=== PATIENT | male | born 1935 | race Caucasian/White ===

== ENCOUNTER → 2017-07-04 | Outpatient (CLI) | payer MEDICARE ==
--- NOTE | 2017-07-04 10:42 | XR ---
EXAMINATION TYPE: XR chest 2V DATE OF EXAM: 07/04/2017 COMPARISON: 02/09/2017 TECHNIQUE: PA and lateral views submitted. HISTORY: Shortness of breath FINDINGS: Intact midline sternotomy wires and mild cardiomegaly are again appreciated. Bilateral calcified pleu ral plaques compatible with the patient's history of asbestos exposure. Diffuse interstitial prominence is difficult to evaluate secondary to overlying pleural plaques but a ppears chronic and unchanged possibly relating to interstitial lobular thickening. Blunting of the costophrenic angles is stable and likely relates to chronic pleural parenchymal thick ening. No new consolidation is seen in comparison the prior exam. IMPRESSION: 1. Correlate for chronic interstitial lung disease and asbestosis related disease.
== END | disposition home or self-care (01) ==
LOC: RADXRMAIN 10:18
PROVIDERS: ATTEND Internal Medicine Cardiovascular Disease
DX: R06.02 Shortness of breath (principal)
CPT/HCPCS: 71046; 83880

== ENCOUNTER 2017-08-29 05:00 | Inpatient (IN) | payer MEDICARE ==
--- NOTE | 2017-08-29 05:44 | ED ---
Weakness HPI - General Chief complaint: Fall Stated complaint: Fall Time Seen by Provider: 08/29/17 05:02 Source: patient, EMS Mode of arrival: EMS Limitations: no limitations - History of Present Illness Initial comments: This patient is an 82-year-old man who presents to be evaluated after he had a fall. The patient states that he had attempted to get up to use the bathroom and then noted that it seemed like his body lost tone for a second. He states that this is been happening over the past few days, but that he had been able to catch himself prior to tonight's episode. He states that he did fall to the ground but did not feel he had any injury. He denies head or neck pain, chest, back, abdomen pain. He did not have any extremity injury. MD Complaint: generalized weakness, difficulty walking -: hour(s) Location: generalized Consistency: intermittent Improves with: none Worsens with: none Associated Symptoms: denies other symptoms - Related Data Allergies Allergy/AdvReac Type Severity Reaction Status Date / Time No Known Allergies Allergy Verified 08/29/17 05:09 Review of Systems ROS Statement: Those systems with pertinent positive or pertinent negative responses have been documented in the HPI. ROS Other: All systems not noted in ROS Statement are negative. Constitutional: Reports: weakness Eyes: Denies: vision change Respiratory: Denies: cough, dyspnea Cardiovascular: Denies: chest pain, palpitations, edema Gastrointestinal: Denies: abdominal pain, vomiting, diarrhea, constipation Genitourinary: Denies: dysuria, hematuria Musculoskeletal: Denies: back pain Skin: Denies: rash Neurological: Reports: weakness. Denies: headache, numbness, paresthesias Past Medical History Past Medical History: Atrial Fibrillation, Hyperlipidemia, Hypertension Additional Past Medical History / Comment(s): asbestos exposure. History of Any Multi-Drug Resistant Organisms: None Reported Past Surgical History: Cholecystectomy, Coronary Bypass/CABG, Hernia Repair Past Psychological History: No Psychological Hx Reported Smoking Status: Former smoker Past Alcohol Use History: Occasional Past Drug Use History: None Reported General Exam Limitations: no limitations General appearance: alert, in no apparent distress Head exam: Present: atraumatic, normocephalic Eye exam: Present: normal appearance. Absent: scleral icterus, conjunctival injection ENT exam: Present: normal oropharynx Neck exam: Present: normal inspection, full ROM Respiratory exam: Present: normal lung sounds bilaterally. Absent: respiratory distress, wheezes, rales, rhonchi, stridor Cardiovascular Exam: Present: regular rate, irregular rhythm, systolic murmur ( Grade 2/6 systolic ejection murmur loudest at the right sternal border). Absent : diastolic murmur, rubs, gallop GI/Abdominal exam: Present: soft. Absent: distended, tenderness, guarding, rebound, rigid, mass Extremities exam: Present: normal inspection, normal capillary refill. Absent: pedal edema, calf tenderness Back exam: Present: normal inspection. Absent: CVA tenderness (R), CVA tenderness (L) Neurological exam: Present: alert, oriented X3, CN II-XII intact. Absent: motor sensory deficit Skin exam: Present: warm, dry, intact, normal color. Absent: rash Course Vital Signs 08/29/17 08/29/17 05:01 06:52 Temperature 100 F H Pulse Rate 64 70 Respiratory 16 18 Rate Blood Pressure 155/76 144/72 O2 Sat by Pulse 98 100 Oximetry Medical Decision Making - Lab Data Result diagrams: 08/29/17 05:50 08/29/17 05:50 Lab Results 08/29/17 08/29/17 08/29/17 Range/Units 05:50 05:50 05:50 WBC 7.5 (3.8-10.6) k/uL RBC 4.29 L (4.30-5.90) m/uL Hgb 11.7 L (13.0-17.5) gm/dL Hct 37.7 L (39.0-53.0) % MCV 87.9 (80.0-100.0) fL MCH 27.3 (25.0-35.0) pg MCHC 31.1 (31.0-37.0) g/dL RDW 14.2 (11.5-15.5) % Plt Count 167 (150-450) k/uL Neutrophils % 93 % Lymphocytes % 3 % Monocytes % 3 % Eosinophils % 0 % Basophils % 0 % Neutrophils # 7.0 (1.3-7.7) k/uL Lymphocytes # 0.2 L (1.0-4.8) k/uL Monocytes # 0.2 (0-1.0) k/uL Eosinophils # 0.0 (0-0.7) k/uL Basophils # 0.0 (0-0.2) k/uL Hypochromasia Slight VBG pH (7.31-7.41) VBG pCO2 (37-51) mmHg VBG HCO3 (24-28) mmol/L Sodium 143 (137-145) mmol/L Potassium 4.8 (3.5-5.1) mmol/L Chloride 93 L (98-107) mmol/L Carbon Dioxide 43 H* (22-30) mmol/L Anion Gap 7 mmol/L BUN 21 H (9-20) mg/dL Creatinine 0.70 (0.66-1.25) mg/dL Est GFR (MDRD) Af Amer >60 (>60 ml/min/1.73 sqM) Est GFR (MDRD) Non-Af >60 (>60 ml/min/1.73 sqM) Glucose 124 H (74-99) mg/dL Calcium 9.8 (8.4-10.2) mg/dL Magnesium 2.4 H (1.6-2.3) mg/dL Total Bilirubin 0.4 (0.2-1.3) mg/dL AST 24 (17-59) U/L ALT 37 (21-72) U/L Alkaline Phosphatase 76 (38-126) U/L Troponin I <0.012 (0.000-0.034) ng/mL Total Protein 6.7 (6.3-8.2) g/dL Albumin 3.8 (3.5-5.0) g/dL TSH 0.182 L (0.465-4.680) mIU/L Urine Color Urine Appearance (Clear) Urine pH (5.0-8.0) Ur Specific [place] (1.001-1.035) Urine Protein (Negative) Urine Glucose (UA) (Negative) Urine Ketones (Negative) Urine Blood (Negative) Urine Nitrite (Negative) Urine Bilirubin (Negative) Urine Urobilinogen (<2.0) mg/dL Ur Leukocyte Esterase (Negative) Urine WBC (0-5) /hpf Ur Squamous Epith Cells (0-4) /hpf Hyaline Casts (0-2) /lpf Urine Mucus (None) /hpf 08/29/17 08/29/17 Range/Units 06:11 06:50 WBC (3.8-10.6) k/uL RBC (4.30-5.90) m/uL Hgb (13.0-17.5) gm/dL Hct (39.0-53.0) % MCV (80.0-100.0) fL MCH (25.0-35.0) pg MCHC (31.0-37.0) g/dL RDW (11.5-15.5) % Plt Count (150-450) k/uL Neutrophils % % Lymphocytes % % Monocytes % % Eosinophils % % Basophils % % Neutrophils # (1.3-7.7) k/uL Lymphocytes # (1.0-4.8) k/uL Monocytes # (0-1.0) k/uL Eosinophils # (0-0.7) k/uL Basophils # (0-0.2) k/uL Hypochromasia VBG pH 7.33 (7.31-7.41) VBG pCO2 75 H* (37-51) mmHg VBG HCO3 38 H (24-28) mmol/L Sodium (137-145) mmol/L Potassium (3.5-5.1) mmol/L Chloride (98-107) mmol/L Carbon Dioxide (22-30) mmol/L Anion Gap mmol/L BUN (9-20) mg/dL Creatinine (0.66-1.25) mg/dL Est GFR (MDRD) Af Amer (>60 ml/min/1.73 sqM) Est GFR (MDRD) Non-Af (>60 ml/min/1.73 sqM) Glucose (74-99) mg/dL Calcium (8.4-10.2) mg/dL Magnesium (1.6-2.3) mg/dL Total Bilirubin (0.2-1.3) mg/dL AST (17-59) U/L ALT (21-72) U/L Alkaline Phosphatase (38-126) U/L Troponin I (0.000-0.034) ng/mL Total Protein (6.3-8.2) g/dL Albumin (3.5-5.0) g/dL TSH (0.465-4.680) mIU/L Urine Color Yellow Urine Appearance Cloudy (Clear) Urine pH 8.5 H (5.0-8.0) Ur Specific [place] 1.015 (1.001-1.035) Urine Protein Trace H (Negative) Urine Glucose (UA) Negative (Negative) Urine Ketones Negative (Negative) Urine Blood Negative (Negative) Urine Nitrite Negative (Negative) Urine Bilirubin Negative (Negative) Urine Urobilinogen 2.0 (<2.0) mg/dL Ur Leukocyte Esterase Negative (Negative) Urine WBC 1 (0-5) /hpf Ur Squamous Epith Cells <1 (0-4) /hpf Hyaline Casts 353 H (0-2) /lpf Urine Mucus Rare H (None) /hpf - EKG Data -: EKG Interpreted by Me EKG shows normal: axis (Normal), intervals (Normal), QRS complexes (Normal), ST- T waves (Normal) Rate: bradycardia Interpretation: other (The underlying rhythm appears to be atrial fibrillation with a rate of 57 bpm) Disposition Clinical Impression: Fall, Respiratory acidosis, COPD exacerbation Disposition: ADMITTED IP TO THIS [facility] Condition: Poor Referrals: [facility],Clinic [Primary Care Provider] - 1-2 days
[2017-08-29 06:10] LABS: Basophils % (A) 0 %; Eosinophils % (A) 0 %; HCT 37.7 % (39.0-53.0); HGB 11.7 gm/dL (13.0-17.5); Hypochromasia Slight; Lymphocytes # (A) 0.2 k/uL (1.0-4.8); Lymphocytes % (A) 3 %; MCH 27.3 pg (25.0-35.0); MCHC 31.1 g/dL (31.0-37.0); MCV 87.9 fL (80.0-100.0); Mean Platelet Volume 7.2; Monocytes # (A) 0.2 k/uL (0-1.0); Monocytes % (A) 3 %; Neutrophils % (A) 93 %; Platelet Count 167 k/uL (150-450); RBC 4.29 m/uL (4.30-5.90); RDW 14.2 % (11.5-15.5); WBC 7.5 k/uL (3.8-10.6)
[2017-08-29 06:27] LABS: Appearance,Urine Cloudy (Clear); Bilirubin,Urine Negative (Negative); Blood,Urine Negative (Negative); Color,Urine Yellow; Glucose,Urine (UA) Negative (Negative); Hyaline Casts,Urine 353 /lpf (0-2); Ketones,Urine Negative (Negative); Leukocyte Esterase,Urine Negative (Negative); Mucus,Urine Rare /hpf; Nitrite,Urine Negative (Negative); PH, Urine 8.5 (5.0-8.0); Protein,Urine Trace (Negative); Specific Gravity,Urine 1.015 (1.001-1.035); Squamous Epithelial Cell,Urine <1 /hpf (0-4); WBC,Urine 1 /hpf (0-5)
--- NOTE | 2017-08-29 06:31 | XR ---
EXAM: XR Chest, 1 View CLINICAL HISTORY: ITS.REASON XR Reason: weakness TECHNIQUE: Frontal view of the chest. COMPARISON: 07/04/17 FINDINGS: No lobar consolidation or pulmonary edema. Calcified pleural plaques redemonstrated bilaterally. Stable diffuse bilateral pulmonary interstitial opacities. CABG changes noted. Moderate cardiomegaly. Low lung volumes. Pulmonary vasculature within normal limits. IMPRESSION: No acute cardiopulmonary process. Stable bilateral calcified pleural plaques compatible with history of asbestosis. Stable chronic interstitial lung disease.
[2017-08-29 06:32] LABS: ALT 37 U/L (21-72); AST 24 U/L (17-59); Albumin 3.8 g/dL (3.5-5.0); Alkaline Phosphatase 76 U/L (38-126); Blood Urea Nitrogen 21 mg/dL (9-20); Calcium 9.8 mg/dL (8.4-10.2); Chloride 93 mmol/L (98-107); Glucose 124 mg/dL (74-99); Magnesium 2.4 mg/dL (1.6-2.3); Potassium 4.8 mmol/L (3.5-5.1); Sodium 143 mmol/L (137-145); Total Bilirubin 0.4 mg/dL (0.2-1.3); Total Protein 6.7 g/dL (6.3-8.2)
[2017-08-29 06:39] LABS: Anion Gap 7 mmol/L
[2017-08-29 06:43] LABS: Carbon Dioxide 43 mmol/L (22-30)
--- NOTE | 2017-08-29 07:02 | CT ---
EXAM: CT Head Without Intravenous Contrast CLINICAL HISTORY: ITS.REASON CT Reason: weakness TECHNIQUE: Axial computed tomography images of the head/brain without intravenous contrast. DLP is 1236 mGy-cm. This CT exam was performed using one or more of the following dose reduction techniques: automated exposure control, adjustment of the mA and/or kV according to patient size, and/or use of iterative reconstruction technique. COMPARISON: No relevant prior studies available. FINDINGS: Brain: Unremarkable. No hemorrhage. No significant white matter disease. No edema. Ventricles: Unremarkable. No ventriculomegaly. Bones/joints: Unremarkable. No acute fracture. Soft tissues: Unremarkable. Sinuses: Mucosal thickening of the left maxillary sinus. Mastoid air cells: Unremarkable as visualized. No mastoid effusion. IMPRESSION: No acute findings. Left maxillary sinus mucosal thickening noted.
[2017-08-29 07:04] LABS: VBG PH 7.33 (7.31-7.41)
[2017-08-29] MEDS ORDERED: methylPREDNISolone SOD SUCCI 125 MG/2 ML VIAL IV STA (07:12)
[2017-08-29] MEDS ORDERED: BUDESONIDE 0.5 MG/2 ML NEBU INHALATION SCH (08:00)
[2017-08-29] MEDS: IPRATROPIUM-ALBUTEROL 3 ML NEB INHALATION SCH ×2 (08:47→12:17)
[2017-08-29] MEDS ORDERED: methylPREDNISolone SOD SUCCI 125 MG/2 ML VIAL IV SCH (12:00)
[2017-08-29 13:51] VITALS: BP 145/64; PULSE 68; RESP 18; TEMP 97.6
--- NOTE | 2017-08-29 22:14 | HP ---
HISTORY AND PHYSICAL HISTORY AND PHYSICAL AND DISCHARGE SUMMARY: CHIEF COMPLAINTS: Fall and shortness of breath. HISTORY OF PRESENT ILLNESS: This 82-year-old gentleman with a past medical history of multiple medical problems, including history of atrial fibrillation, history of hypertension, hyperlipidemia, DJD, history of respirations lung disease, asbestos exposure and on home O2, chronic hypoxic respiratory failure being followed by the [place] [facility] in the outpatient setting, apparently had a fall at home. The patient lost his balance and fell and the patient is complaining of some right leg pain. Otherwise, patient also had shortness of breath. The patient came to [facility] and was admitted for further evaluation and treatment. There was no history of fever, rigors. No history of headache, loss of consciousness, seizures. PAST MEDICAL HISTORY: History of atrial fibrillation, history of hypertension, hyperlipidemia, history of DJD, history of respiratory disorder with chronic hypoxic respiratory failure. MEDICATIONS PRIOR TO ADMISSION: Include home medications are: 1. Trazodone 50-150 mg q.h.s. 2. Prednisone taper. 3. Ativan 0.5 mg q.h.s. 4. Percocet 1 tablet every 6 hours p.r.n. 5. Vitamin D3 1000 daily. 6. Ventolin HFA 1-2 puffs every 6 hours. 7. Multivitamins 1 p.o. daily. 8. Neurontin 400 mg q.8. 9. Fish oil 1 p.o. daily. 10.Mobic 15 mg p.o. daily. 11.Lasix 20 mg b.i.d. 12.K-Dur 20 mg p.o. daily. 13.Zaroxolyn 2.5 mg Monday, Monday and Monday. 14.Benicar 20 mg p.o. daily. 15.Lipitor 20 mg q.h.s. 16.Ecotrin 81 mg p.o. daily. 17.Zyloprim 100 mg p.o. daily. 18.Nexium 20 mg p.o. daily. 19.Alphagan 1 drop right eye b.i.d. 20.Eliquis 2.5 mg b.i.d. 21.Lumigan 0.05% 1 drop both eyes q.h.s. ALLERGIES: None. FAMILY HISTORY: History of cancer, coronary artery disease in the family, CAD and CABG. SOCIAL HISTORY: Previous history of smoking. Occasional alcohol intake. REVIEW OF SYSTEMS: ENT: No diminished hearing, diminished vision. CARDIOVASCULAR: As mentioned earlier. RESPIRATORY: As mentioned earlier. GI: No nausea or vomiting. : No dysuria. NERVOUS: No numbness or weakness. ALLERGY/IMMUNOLOGY: No asthma or hay fever. MUSCULOSKELETAL: As mentioned earlier. HEMATOLOGY/ONCOLOGY: No history of anemia. ENDOCRINE: As mentioned earlier. CONSTITUTIONAL: As mentioned earlier. DERMATOLOGY: Negative. RHEUMATOLOGY: Negative. PSYCHIATRY: As mentioned earlier. PHYSICAL EXAM: Alert, oriented x3. Pulse 68, blood pressure 145/64, respirations 18, temperature 97.6, pulse ox 90% room air. HEENT: Conjunctivae normal. Oral mucosa moist. NECK: No jugular venous distention. No carotid bruits. No lymph node enlargement. CARDIOVASCULAR: S1, S2 muffled. No S3. No S4. RESPIRATORY: Breath sounds diminished in the bases. A few scattered rhonchi. No crackles. ABDOMEN: Soft, nontender. No mass palpable. LEGS: No edema. No swelling. Bruises present. NERVOUS SYSTEM: Higher functions as mentioned earlier. Moves all 4 limbs. No focal motor or sensory deficits. LYMPHATIC: No lymphadenopathy in neck or axillae. SKIN: No ulcer, rash or bleeding. LAB INVESTIGATIONS: At this time WBC 7, hemoglobin 7.7. VBGs noted. CO2 is 43. ASSESSMENT: 1. History of fall and gait dysfunction and right leg contusion. 2. History of degenerative joint disease. 3. Chronic obstructive pulmonary disease. 4. Anemia, normocytic. 5. Increased CO2. 6. History atrial fibrillation. 7. Hypertension. 8. Hyperlipidemia. 9. History of degenerative joint disease. 10.History of chronic hypoxic respiratory failure. 11.Bilateral glaucoma. 12.Coronary artery disease, coronary artery bypass graft. RECOMMENDATIONS AND DISCUSSION: In this 82-year-old gentleman who presented with multiple complex medical issues, at this time I would recommend the patient to be discharged home and continue the home medications. Dr. Causey has re-evaluated the patient and recommended discharge. Otherwise PT, OT evaluation and repeat labs with the primary physician and resume the home medications, which are evaluated and reconciled. Please refer to the discharge reconciliation sheet for further information. Prognosis guarded and further recommendations for outpatient followup. MMODL / IJN: [id number] /
--- NOTE | 2017-09-04 12:06 | CDI ---
Last Revision, June 2017 Documentation Clarification Form Date: 09/04/2017 12:01:00 PM From: Janessa Cheikh Rajwinder Shields, Supervisory Examiner between 8:30 am & 5 pm -FMRN : [id number] Admit Date: 08/29/2017 7:12:00 AM Patient Name: Ronnie Sparks Visit Number: [id number] Discharge Date: 08/29/17 ATTENTION: The Clinical Documentation Specialists (CDI) and [facility] Coding Staff appreciate your assistance in clarifying documentation. Please respond to the clarification below the line at the bottom and electronically sign. The CDI & [facility] Coding staff will review the response and follow-up if needed. Please note: Queries are made part of the Legal Health Record. If you have any questions, please contact the author of this message via ITS. Dr Perez Harris Atrial fibrillation is documented in the ED record and H&P. EKG/telemetry: Atrial fibrillation with slow ventricular response. Treatment: Elizuis 2.5 mg po BID In your professional opinion, can you please clarify the type of atrial fibrillation, if known? Chronic/Permanent Paroxysmal Persistent Other, please specify Unable to determine Please continue to document in your progress notes and discharge summary in order to capture severity of illness and risk of mortality. Include clinical findings that support your diagnosis. Chronic/Permanent MTDD
== END 2017-08-29 13:45 | disposition home or self-care (01) | DRG 191 ==
LOC: EC 05:00 → 4MS4W 07:12
PROVIDERS: ADMIT Internal Medicine; ATTEND Internal Medicine
DX: J44.1 Chronic obstructive pulmonary disease with (acute) exacerbation (principal); J96.11 Chronic respiratory failure with hypoxia; E87.2 Acidosis; I48.2 Chronic atrial fibrillation; Z99.81 Dependence on supplemental oxygen; D64.9 Anemia, unspecified; E78.5 Hyperlipidemia, unspecified; S80.11XA Contusion of right lower leg, initial encounter; H40.9 Unspecified glaucoma; Z95.1 Presence of aortocoronary bypass graft; I10 Essential (primary) hypertension; M19.91 Primary osteoarthritis, unspecified site; R26.2 Difficulty in walking, not elsewhere classified; I25.10 Atherosclerotic heart disease of native coronary artery without angina pectoris; Z79.01 Long term (current) use of anticoagulants; Z79.1 Long term (current) use of non-steroidal anti-inflammatories (NSAID); Z79.82 Long term (current) use of aspirin; Z79.52 Long term (current) use of systemic steroids; Z79.899 Other long term (current) drug therapy; Z87.891 Personal history of nicotine dependence; Z77.090 Contact with and (suspected) exposure to asbestos; W19.XXXA Unspecified fall, initial encounter; Y92.009 Unspecified place in unspecified non-institutional (private) residence as the place of occurrence of the external cause
CPT/HCPCS: 36415; 70450; 71045; 80053; 81001; 82803; 83735; 84443; 84484; 85025; 87502; 93005; 94640; 96374; 99285

== ENCOUNTER 2018-06-13 07:15 | Day surgery (SDC) | payer MEDICARE ==
[~2018-06-13 07:15] MED LIST: LACTATED RINGERS 1,000 ML IV SCH; LIDOCAINE 1% 20 ML VIAL (10MG/ML) FOR IV START INTRADERMA PRN
[2018-06-13 07:48] VITALS: TEMP 98.4
[2018-06-13] MEDS ORDERED: PROPOFOL 10 MG/ML 20 ML VIAL IV ONE (09:19)
--- NOTE | 2018-06-13 10:00 | P.PCN ---
Date of Procedure: 06/13/18 Procedure(s) Performed: BRIEF HISTORY: Patient is a 82-year-old pleasant white male, scheduled for an elective colonoscopy as a part of evaluation of Hemoccult positive stool. PROCEDURE PERFORMED: Colonoscopy with snare polypectomy. PREOPERATIVE DIAGNOSIS: Hemoccult-positive stool. IV sedation per Anesthesia. PROCEDURE: After informed consent was obtained, the patient, was brought into the endoscopy unit. IV sedation was administered by Anesthesia under continuous monitoring. Digital rectal examination was normal. Initially the Olympus CF- 160 flexible video colonoscope was then inserted in the rectum, gradually advanced into the hepatic flexure and further advancement of the scope was not possible because of the extremely redundant colon. Also prep was poor in several areas of the colon precluding adequate visualization. The visualized portions of the transverse colon, appeared normal in the descending colon there was a 1 cm polyp removed by snare polypectomy. Rest of the descending colon, sigmoid colon, and rectum appeared normal. Retroflexion was performed in the rectum and no lesions were seen. The patient tolerated the procedure well. IMPRESSION: 1 cm descending colon polyp status post polypectomy Poor prep involving the entire colon Scope advanced up to the hepatic flexure and scattered sigmoid diverticulosis seen. RECOMMENDATIONS: Findings of this examination were discussed with the patient as well as his family. He was advised to follow with the biopsy results and will plan a repeat colonoscopy in one year.
[2018-06-13 10:34] VITALS: BP 114/67; PULSE 57; RESP 18
== END 2018-06-13 10:44 | disposition home or self-care (01) ==
LOC: ORWHC2ENDO 07:15
PROVIDERS: ATTEND Internal Medicine Gastroenterology
DX: D12.4 Benign neoplasm of descending colon (principal); K57.30 Diverticulosis of large intestine without perforation or abscess without bleeding; Q43.8 Other specified congenital malformations of intestine; R19.5 Other fecal abnormalities; I25.10 Atherosclerotic heart disease of native coronary artery without angina pectoris; I48.91 Unspecified atrial fibrillation; I10 Essential (primary) hypertension; E78.5 Hyperlipidemia, unspecified; K21.9 Gastro-esophageal reflux disease without esophagitis; Z95.1 Presence of aortocoronary bypass graft; Z79.01 Long term (current) use of anticoagulants; Z79.82 Long term (current) use of aspirin; Z79.899 Other long term (current) drug therapy
CPT/HCPCS: 88305; 45385; J2704

== ENCOUNTER 2020-06-21 11:15 | Inpatient (IN) | payer MEDICARE ==
[2020-06-21] MEDS ORDERED: ALBUTEROL HFA INHALER INHALATION STA (11:31)
[2020-06-21] MEDS ORDERED: ALBUTEROL HFA INHALER INHALATION PRN (11:31)
[2020-06-21] MEDS ORDERED: ACETAMINOPHEN IV (For NPO) 1,000 MG in EMPTY BAG 1 BAG IVPB STA (11:34)
--- NOTE | 2020-06-21 11:37 | ED ---
General Adult HPI - General Stated complaint: Altered Source: patient, EMS, RN notes reviewed, old records reviewed Mode of arrival: EMS Limitations: altered mental status, physical limitation - History of Present Illness Initial comments: Patient is a pleasant 84-year-old male presenting to the emergency department by EMS for weakness. Patient reportedly was in a chair and fell out. Unclear if there is injury. Patient does have c-collar present. Patient is a pineda with poor historian and provides limited history. Patient does admit to cough and shortness of breath however unclear how long. Further history is limited. - Related Data Home Medications Medication Instructions Recorded Confirmed Apixaban [Eliquis] 2.5 mg PO BID 08/29/17 06/21/20 Atorvastatin [Lipitor] 10 mg PO HS 08/29/17 06/21/20 Bimatoprost [Lumigan .01% Ophth 1 drop BOTH EYES HS 08/29/17 06/21/20 Soln] Esomeprazole Magnesium [NexIUM] 20 mg PO HS 08/29/17 06/21/20 Furosemide [Lasix] 20 mg PO BID 08/29/17 06/21/20 Olmesartan [Benicar] 20 mg PO QAM 08/29/17 06/21/20 Potassium Chloride ER [K-Dur 20] 20 meq PO BID 08/29/17 06/21/20 allopurinoL [Zyloprim] 100 mg PO QAM 08/29/17 06/21/20 metOLazone [Zaroxolyn] 2.5 mg PO MOWEFR PRN 08/29/17 06/21/20 oxyCODONE-APAP 5-325MG [Percocet 1 tab PO Q6HR PRN 08/29/17 06/21/20 5-325 mg] traZODone HCL 50 - 150 mg PO HS PRN 08/29/17 06/21/20 Celecoxib [CeleBREX] 100 mg PO BID 06/21/20 06/21/20 Docusate [Colace] 200 mg PO DAILY 06/21/20 06/21/20 LORazepam [Ativan] 1 mg PO BID 06/21/20 06/21/20 Melatonin 5 mg PO HS PRN 06/21/20 06/21/20 SILVER sulfADIAZINE Cream 1 applic TOPICAL DIRECTED 12/20/20 12/20/20 [Silvadene 1% Cream] Tamsulosin HCl [Flomax] 0.8 mg PO HS 06/21/20 06/21/20 Temazepam [Restoril] 7.5 mg PO HS PRN 06/21/20 06/21/20 acetaZOLAMIDE [Diamox] 250 mg PO BID 06/21/20 06/21/20 metOLazone [Zaroxolyn] 5 mg PO DIRECTED PRN 06/21/20 06/21/20 Allergies Allergy/AdvReac Type Severity Reaction Status Date / Time No Known Allergies Allergy Verified 06/13/18 07:47 Review of Systems ROS Statement: Those systems with pertinent positive or pertinent negative responses have been documented in the HPI. ROS Other: All systems not noted in ROS Statement are negative. Constitutional: Reports: fever Eyes: Denies: eye pain ENT: Denies: ear pain Respiratory: Reports: cough, dyspnea Cardiovascular: Denies: chest pain Endocrine: Reports: fatigue Gastrointestinal: Denies: abdominal pain Genitourinary: Denies: dysuria Musculoskeletal: Denies: back pain Skin: Denies: rash Neurological: Denies: headache Past Medical History Past Medical History: Atrial Fibrillation, COPD, Eye Disorder, Hyperlipidemia, Hypertension, Osteoarthritis (OA), Respiratory Disorder Additional Past Medical History / Comment(s): CURRENT: RECTAL BLEEDING, LOW H GB, "COLD". 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 Current dry rash buttocks-being tx by Dr. Caldwell. lower leg edema at times. bilateral glaucoma. arthritis-bilateral hips/knees. History of Any Multi-Drug Resistant Organisms: None Reported Past Surgical History: Cholecystectomy, Coronary Bypass/CABG, Heart Catheterization, Hernia Repair, Joint Replacement, Tonsillectomy Additional Past Surgical History / Comment(s): 4 vessl CABG about 14-15 yrs ago, total L hip arthroplasty, bilateral cataract removal with lens implants, colonoscopy, umbilical hernia repair. Past Anesthesia/Blood Transfusion Reactions: No Reported Reaction Past Psychological History: No Psychological Hx Reported Smoking Status: Unknown if ever smoked Past Alcohol Use History: Occasional Past Drug Use History: None Reported - Past Family History Father Family Medical History: Cancer, Coronary Artery Disease (CAD) Additional Family Medical History / Comment(s): Father had CABG and of stomach cancer. Mother History Unknown: Yes Additional Family Medical History / Comment(s): Mother had many unknown medical problems. She lived to be in her 90s. General Exam Limitations: altered mental status, physical limitation General appearance: alert, in no apparent distress Head exam: Present: atraumatic, normocephalic Eye exam: Present: normal appearance, PERRL Neck exam: Present: normal inspection Respiratory exam: Present: rales Cardiovascular Exam: Present: tachycardia, irregular rhythm GI/Abdominal exam: Present: soft. Absent: distended, tenderness Extremities exam: Present: normal inspection, full ROM. Absent: tenderness Neurological exam: Present: alert Expanded Neurological exam: Present: protecting the airway Patient oriented to: Present: person. Absent: place, time Motor strength exam: RUE: 4, LUE: 4, RLE: 4, LLE: 4 Eye Response: (4) open spontaneously Motor Response: (6) obeys commands Verbal Response: (4) confused conversation Psychiatric exam: Present: flat affect Skin exam: Present: normal color. Absent: rash Course Vital Signs 06/21/20 06/21/20 06/21/20 11:32 11:40 11:48 Temperature 103.7 F H Pulse Rate 80 82 Respiratory 26 H 28 H Rate Blood Pressure 170/89 O2 Sat by Pulse 94 L Oximetry 06/21/20 11:59 Temperature Pulse Rate 84 Respiratory Rate Blood Pressure O2 Sat by Pulse Oximetry - Reevaluation(s) Reevaluation #1: 06/21/20 12:42 There is concern for sepsis diagnosed at 12:40 PM. Blood culture and lactic acid ordered. IV antibiotics ordered. EKG Findings - EKG Comments: EKG Findings:: A. fib with a rate of 84. QRS 90. QT 332. QTC 392. Normal axis. Inferior Q waves. non specific T waves. Medical Decision Making - Medical Decision Making Patient was reevaluated Case was discussed with Dr. Vee who did come evaluate patient. He will admit covering for Dr. Blair - Lab Data Result diagrams: 06/21/20 11:26 06/21/20 11:26 Lab Results 06/21/20 06/21/20 06/21/20 Range/Units 11:26 11:26 11:26 WBC 12.7 H (3.8-10.6) k/uL RBC 3.84 L (4.30-5.90) m/uL Hgb 11.2 L (13.0-17.5) gm/dL Hct 34.2 L (39.0-53.0) % MCV 89.2 (80.0-100.0) fL MCH 29.3 (25.0-35.0) pg MCHC 32.9 (31.0-37.0) g/dL RDW 14.8 (11.5-15.5) % Plt Count 105 L (150-450) k/uL MPV 7.7 Neutrophils % 92 % Lymphocytes % 3 % Monocytes % 4 % Eosinophils % 0 % Basophils % 0 % Neutrophils # 11.7 H (1.3-7.7) k/uL Lymphocytes # 0.3 L (1.0-4.8) k/uL Monocytes # 0.5 (0-1.0) k/uL Eosinophils # 0.0 (0-0.7) k/uL Basophils # 0.0 (0-0.2) k/uL PT 12.4 H (9.0-12.0) sec INR 1.2 H (<1.2) APTT 18.8 L (22.0-30.0) sec Sodium 139 (137-145) mmol/L Potassium 4.2 (3.5-5.1) mmol/L Chloride 106 (98-107) mmol/L Carbon Dioxide 26 (22-30) mmol/L Anion Gap 7 mmol/L BUN 34 H (9-20) mg/dL Creatinine 1.21 (0.66-1.25) mg/dL Est GFR (CKD-EPI)AfAm 63 (>60 ml/min/1.73 sqM) Est GFR (CKD-EPI)NonAf 54 (>60 ml/min/1.73 sqM) Glucose 171 H (74-99) mg/dL Plasma Lactic Acid Ted (0.7-2.0) mmol/L Calcium 9.0 (8.4-10.2) mg/dL Magnesium 1.9 (1.6-2.3) mg/dL Total Bilirubin 1.2 (0.2-1.3) mg/dL AST 30 (17-59) U/L ALT 21 (4-49) U/L Alkaline Phosphatase 78 (38-126) U/L Lactate Dehydrogenase 542 (313-618) U/L C-Reactive Protein 47.1 H (<10.0) mg/L Total Protein 6.4 (6.3-8.2) g/dL Albumin 3.7 (3.5-5.0) g/dL Urine Color Urine Appearance (Clear) Urine pH (5.0-8.0) Ur Specific [place] (1.001-1.035) Urine Protein (Negative) Urine Glucose (UA) (Negative) Urine Ketones (Negative) Urine Blood (Negative) Urine Nitrite (Negative) Urine Bilirubin (Negative) Urine Urobilinogen (<2.0) mg/dL Ur Leukocyte Esterase (Negative) Urine RBC (0-5) /hpf Urine WBC (0-5) /hpf Urine WBC Clumps (None) /hpf Urine Bacteria (None) /hpf Urine Mucus (None) /hpf Coronavirus (PCR) (Not Detectd) 06/21/20 06/21/20 06/21/20 Range/Units 11:26 11:26 11:26 WBC (3.8-10.6) k/uL RBC (4.30-5.90) m/uL Hgb (13.0-17.5) gm/dL Hct (39.0-53.0) % MCV (80.0-100.0) fL MCH (25.0-35.0) pg MCHC (31.0-37.0) g/dL RDW (11.5-15.5) % Plt Count (150-450) k/uL MPV Neutrophils % % Lymphocytes % % Monocytes % % Eosinophils % % Basophils % % Neutrophils # (1.3-7.7) k/uL Lymphocytes # (1.0-4.8) k/uL Monocytes # (0-1.0) k/uL Eosinophils # (0-0.7) k/uL Basophils # (0-0.2) k/uL PT (9.0-12.0) sec INR (<1.2) APTT (22.0-30.0) sec Sodium (137-145) mmol/L Potassium (3.5-5.1) mmol/L Chloride (98-107) mmol/L Carbon Dioxide (22-30) mmol/L Anion Gap mmol/L BUN (9-20) mg/dL Creatinine (0.66-1.25) mg/dL Est GFR (CKD-EPI)AfAm (>60 ml/min/1.73 sqM) Est GFR (CKD-EPI)NonAf (>60 ml/min/1.73 sqM) Glucose (74-99) mg/dL Plasma Lactic Acid Ted 2.5 H* (0.7-2.0) mmol/L Calcium (8.4-10.2) mg/dL Magnesium (1.6-2.3) mg/dL Total Bilirubin (0.2-1.3) mg/dL AST (17-59) U/L ALT (4-49) U/L Alkaline Phosphatase (38-126) U/L Lactate Dehydrogenase (313-618) U/L C-Reactive Protein (<10.0) mg/L Total Protein (6.3-8.2) g/dL Albumin (3.5-5.0) g/dL Urine Color Yellow Urine Appearance Cloudy (Clear) Urine pH 7.0 (5.0-8.0) Ur Specific [place] 1.018 (1.001-1.035) Urine Protein 1+ H (Negative) Urine Glucose (UA) Negative (Negative) Urine Ketones Negative (Negative) Urine Blood Moderate H (Negative) Urine Nitrite Negative (Negative) Urine Bilirubin Negative (Negative) Urine Urobilinogen 8.0 (<2.0) mg/dL Ur Leukocyte Esterase Large H (Negative) Urine RBC >182 H (0-5) /hpf Urine WBC 130 H (0-5) /hpf Urine WBC Clumps Few H (None) /hpf Urine Bacteria Moderate H (None) /hpf Urine Mucus Occasional H (None) /hpf Coronavirus (PCR) Not Detected (Not Detectd) - Radiology Data Radiology results: report reviewed (Computed tomography scan of the brain shows atrophy. No acute intercranial abdomen [place]. ET scan cervical spine shows spondylitic changes. No fracture.), image reviewed (Chest x-ray per radiologist shows concern for pulmonary edema superimposed on extensive chronic pulmonary interstitial fibrosis.) Critical Care Time Critical Care Time: Yes Total Critical Care Time: 32 Disposition Clinical Impression: Sepsis, UTI (urinary tract infection), Pneumonia Disposition: ADMITTED IP TO THIS HOSP Condition: Serious Is patient prescribed a controlled substance at d/c from ED?: No Referrals: Jesus Alberto Graves DO [Primary Care Provider] - 1-2 days Decision Time: 12:47
[2020-06-21 11:39] LABS: Basophils % (A) 0 %; Eosinophils % (A) 0 %; HCT 34.2 % (39.0-53.0); HGB 11.2 gm/dL (13.0-17.5); Lymphocytes # (A) 0.3 k/uL (1.0-4.8); Lymphocytes % (A) 3 %; MCH 29.3 pg (25.0-35.0); MCHC 32.9 g/dL (31.0-37.0); MCV 89.2 fL (80.0-100.0); Mean Platelet Volume 7.7; Monocytes # (A) 0.5 k/uL (0-1.0); Monocytes % (A) 4 %; Neutrophils # (A) 11.7 k/uL (1.3-7.7); Neutrophils % (A) 92 %; Platelet Count 105 k/uL (150-450); RBC 3.84 m/uL (4.30-5.90); RDW 14.8 % (11.5-15.5); WBC 12.7 k/uL (3.8-10.6)
[2020-06-21] MEDS ORDERED: IPRATROPIUM-ALBUTEROL 3 ML NEB INHALATION STA (11:43)
[2020-06-21 11:54] LABS: Albumin 3.7 g/dL (3.5-5.0); C Reactive Protein 47.1 mg/L (<10.0); Magnesium 1.9 mg/dL (1.6-2.3); Potassium 4.2 mmol/L (3.5-5.1); Total Bilirubin 1.2 mg/dL (0.2-1.3); Total Protein 6.4 g/dL (6.3-8.2)
[2020-06-21 12:00] LABS: Appearance,Urine Cloudy (Clear); Bacteria,Urine Moderate /hpf; Bilirubin,Urine Negative (Negative); Blood,Urine Moderate (Negative); Color,Urine Yellow; Glucose,Urine (UA) Negative (Negative); Ketones,Urine Negative (Negative); Leukocyte Esterase,Urine Large (Negative); Mucus,Urine Occasional /hpf; Nitrite,Urine Negative (Negative); Protein,Urine 1+ (Negative); RBC,Urine >182 /hpf (0-5); Specific Gravity,Urine 1.018 (1.001-1.035); WBC,Urine 130 /hpf (0-5)
[2020-06-21 12:05] LABS: INR 1.2 (<1.2); Prothrombin Time 12.4 sec (9.0-12.0)
[2020-06-21 12:07] LABS: Partial Thromboplastin Time 18.8 sec (22.0-30.0)
[2020-06-21] MEDS ORDERED: PNEUMONIA PROTOCOL UTILIZED 1 EACH MISC PO PRN (12:40)
[2020-06-21] MEDS ORDERED: AZITHROMYCIN 500 MG in SODIUM CHLORIDE 0.9% 250 ML IVPB STA (12:40)
[2020-06-21] MEDS ORDERED: IPRATROPIUM-ALBUTEROL 3 ML NEB INHALATION PRN (12:40)
[2020-06-21] MEDS ORDERED: PIPERACILLIN-TAZOBACTAM 3.375 GM in SODIUM CHLORIDE 0.9% 100 ML IVPB STA (12:40)
--- NOTE | 2020-06-21 12:43 | CT ---
EXAMINATION TYPE: CT brain torreyine wo con DATE OF EXAM: 06/21/2020 CT DLP: 1800.4 mGycm Automated exposure control for dose reduction was used. CT scan of the brain and cervical spine. History neck pain. Headache. Comparison CT brain 08/29/2017. FINDINGS: There is cerebral cortical atrophy. There is no mass effect nor midline shift. There is no sign of in tracranial hemorrhage. The calvarium is intact. There is cortical thickening in the ethmoid air cells . Cervical vertebra have normal alignment. There is degenerative spurring of the endplates throughout t he cervical spine. There is no compression fracture. There is uncovertebral spurring and multilevel n eural foraminal stenosis from C3 to C7. The posterior elements are intact. IMPRESSION: Cerebral atrophy. No acute intracranial abnormality. No change compared to old exam. Multilevel cervical spondylotic changes. No fracture.
[2020-06-21] MEDS ORDERED: SODIUM CHLORIDE 0.9% 1,000 ML IV SCH ×2 (12:45→17:15)
--- NOTE | 2020-06-21 12:46 | XR ---
EXAMINATION TYPE: XR chest 1V portable DATE OF EXAM: 06/21/2020 COMPARISON: 05/12/2020 HISTORY: Short of breath. Pneumonia. TECHNIQUE: FINDINGS: There is diffuse pulmonary interstitial and airspace infiltrate. There is bilateral calcifi ed pleural plaque. There are sternal wires. Heart is enlarged. There are chest leads. Bony thorax is intact. IMPRESSION: There is some pulmonary edema that is superimposed on extensive chronic pulmonary interst itial fibrosis and calcified pleural plaque. Lung disease is slightly worse than recent exam. The pul monary fibrosis unchanged compared to July 04, 2017.
[2020-06-21 12:57] VITALS: RESP 24; TEMP 100.8
--- NOTE | 2020-06-21 13:21 | P.HPIM ---
History of Present Illness 84-year-old male came to ER after falling from chair which is actually sliding from chair. CT of the neck did not show any significant abnormality patient is found to be septic was significantly abnormal urine chest x-ray showing diffuse bilateral infiltrates patient has high-grade fever. She does negative for Covid 19. Patient is lethargic sleepy unable to provide much of the history to me. I was able to get history from his . Patient does have history of coronary artery bypass surgery in the past but unsure whether patient has can start failure although patient has significant enlarged heart with widened mediastinu m. I'm unable to assess his JVD because of his the cervical collar although patient does have pedal edema. Patient usually uses a Benicar Zaroxolyn at home along with Eliquis. Patient was coughing unable to bring up anything patient denied any dysuria able to provide me some history. Review of Systems except those mentioned above rest of the review of systems is negative and unable to get much of the review of systems because of his overall clinical condition Past Medical History Past Medical History: Atrial Fibrillation, COPD, Eye Disorder, Hyperlipidemia, Hypertension, Osteoarthritis (OA), Respiratory Disorder Additional Past Medical History / Comment(s): CURRENT: RECTAL BLEEDING, LOW HGB, "COLD". 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 Current dry rash buttocks-being tx by Dr. Caldwell. lower leg edema at times. bilateral glaucoma. arthritis-bilateral hips/knees. History of Any Multi-Drug Resistant Organisms: None Reported Past Surgical History: Cholecystectomy, Coronary Bypass/CABG, Heart Catheterization, Hernia Repair, Joint Replacement, Tonsillectomy Additional Past Surgical History / Comment(s): 4 vessl CABG about 14-15 yrs ago, total L hip arthroplasty, bilateral cataract removal with lens implants, colonoscopy, umbilical hernia repair. Past Anesthesia/Blood Transfusion Reactions: No Reported Reaction Past Psychological History: No Psychological Hx Reported Smoking Status: Unknown if ever smoked Past Alcohol Use History: Occasional Past Drug Use History: None Reported - Past Family History Father Family Medical History: Cancer, Coronary Artery Disease (CAD) Additional Family Medical History / Comment(s): Father had CABG and of stomach cancer. Mother History Unknown: Yes Additional Family Medical History / Comment(s): Mother had many unknown medical problems. She lived to be in her 90s. Medications and Allergies Home Medications Medication Instructions Recorded Confirmed Type Apixaban [Eliquis] 2.5 mg PO BID 08/29/17 06/13/18 History Atorvastatin [Lipitor] 10 mg PO HS 08/29/17 06/13/18 History Bimatoprost [Lumigan .01% Ophth 1 drop BOTH EYES HS 08/29/17 06/13/18 History Soln] Esomeprazole Magnesium [NexIUM] 20 mg PO HS 08/29/17 06/13/18 History Furosemide [Lasix] 20 mg PO BID@0900,1500 08/29/17 06/13/18 History Olmesartan [Benicar] 20 mg PO QAM 08/29/17 06/13/18 History Potassium Chloride ER [K-Dur 20] 20 meq PO BID 08/29/17 06/13/18 History allopurinoL [Zyloprim] 100 mg PO QAM 08/29/17 06/13/18 History metOLazone [Zaroxolyn] 2.5 mg PO MOWEFR PRN 08/29/17 06/13/18 History oxyCODONE-APAP 5-325MG [Percocet 0.5 tab PO Q6HR PRN 08/29/17 06/13/18 History 5-325 mg] traZODone HCL 50 - 150 mg PO HS 08/29/17 06/13/18 History Celecoxib [CeleBREX] 100 mg PO BID 06/21/20 06/21/20 History Docusate [Colace] 200 mg PO DAILY 06/21/20 06/21/20 History LORazepam [Ativan] 1 mg PO BID 06/21/20 06/21/20 History Melatonin 5 mg PO HS PRN 06/21/20 06/21/20 History SILVER sulfADIAZINE Cream 1 applic TOPICAL DIRECTED 06/21/20 06/21/20 History [Silvadene 1% Cream] Tamsulosin HCl [Flomax] 0.8 mg PO HS 06/21/20 06/21/20 History Temazepam [Restoril] 7.5 mg PO HS PRN 06/21/20 06/21/20 History acetaZOLAMIDE [Diamox] 250 mg PO BID 06/21/20 06/21/20 History metOLazone [Zaroxolyn] 5 mg PO DIRECTED PRN 06/21/20 06/21/20 History Allergies Allergy/AdvReac Type Severity Reaction Status Date / Time No Known Allergies Allergy Verified 06/13/18 07:47 Physical Exam Vitals: Vital Signs Temp Pulse Resp BP Pulse Ox 06/21/20 11:59 84 06/21/20 11:48 82 06/21/20 11:40 28 H 06/21/20 11:32 103.7 F H 80 26 H 170/89 94 L Intake and Output 06/20/20 06/21/20 06/21/20 22:59 06:59 14:59 Other: Weight 136.078 kg PHYSICAL EXAMINATION: GENERAL: Tobese severely lethargic and drowsy unable to assess his orientation. Patient has a cervical collar in place HEENT: Pupils are round and equally reacting to light. EOMI. No scleral icterus. No conjunctival pallor. Normocephalic, atraumatic. No pharyngeal erythema. No thyromegaly. CARDIOVASCULAR: S1 and S2 present. No murmurs, rubs, or gallops. able to assess JVD because of his hard cervical collar PULMONARY: his bilateral rhonchi ABDOMEN: Soft, nontender, nondistended, normoactive bowel sounds. No palpable organomegaly. MUSCULOSKELETAL: No joint swelling or deformity. EXTREMITIES: No cyanosis, clubbing, or pedal edema. NEUROLOGICAL: unable to assess his SKIN: No rashes. Results CBC & Chem 7: 06/21/20 11:26 06/21/20 11:26 Labs: Abnormal Lab Results - Last 24 Hours (Table) 06/21/20 06/21/20 06/21/20 Range/Units 11:26 11:26 11:26 WBC 12.7 H (3.8-10.6) k/uL RBC 3.84 L (4.30-5.90) m/uL Hgb 11.2 L (13.0-17.5) gm/dL Hct 34.2 L (39.0-53.0) % Plt Count 105 L (150-450) k/uL Neutrophils # 11.7 H (1.3-7.7) k/uL Lymphocytes # 0.3 L (1.0-4.8) k/uL PT 12.4 H (9.0-12.0) sec INR 1.2 H (<1.2) APTT 18.8 L (22.0-30.0) sec BUN 34 H (9-20) mg/dL Glucose 171 H (74-99) mg/dL Plasma Lactic Acid Ted (0.7-2.0) mmol/L C-Reactive Protein 47.1 H (<10.0) mg/L Urine Protein (Negative) Urine Blood (Negative) Ur Leukocyte Esterase (Negative) Urine RBC (0-5) /hpf Urine WBC (0-5) /hpf Urine WBC Clumps (None) /hpf Urine Bacteria (None) /hpf Urine Mucus (None) /hpf 06/21/20 06/21/20 Range/Units 11:26 11:26 WBC (3.8-10.6) k/uL RBC (4.30-5.90) m/uL Hgb (13.0-17.5) gm/dL Hct (39.0-53.0) % Plt Count (150-450) k/uL Neutrophils # (1.3-7.7) k/uL Lymphocytes # (1.0-4.8) k/uL PT (9.0-12.0) sec INR (<1.2) APTT (22.0-30.0) sec BUN (9-20) mg/dL Glucose (74-99) mg/dL Plasma Lactic Acid Ted 2.5 H* (0.7-2.0) mmol/L C-Reactive Protein (<10.0) mg/L Urine Protein 1+ H (Negative) Urine Blood Moderate H (Negative) Ur Leukocyte Esterase Large H (Negative) Urine RBC >182 H (0-5) /hpf Urine WBC 130 H (0-5) /hpf Urine WBC Clumps Few H (None) /hpf Urine Bacteria Moderate H (None) /hpf Urine Mucus Occasional H (None) /hpf Assessment and Plan Plan: -severe sepsis: Most probably secondary to pneumonia bilateral patient is on Z osyn which will be continued. Sputum cultures and blood cultures will be obtainedthe patient does have abnormal urine as well although patient denied any symptoms of UTI probably symptomatic bacteriuria. Possible sources pneumonia. -Loss of consciousness probably secondary to severe sepsis -Acute on chronic hypoxic respiratory failure secondary to pneumonia that may be a competent of CHF since I cannot assess JVD and waiting for be BNP. Depending on the BMP will lead decide on diuretics.chest x-ray is read as pulmonary fibrosis, pulmonary edemapatient does have lactic acidosis we'll repeat lactic acid again patient may actually need Lasix as patient is not in septic shock. -congestive heart failure EF is unknown will obtain echocardiogram: Patient may need Lasix he appears to be heart failure as well. we'll repeat lactic acid and monitor lactic acid. -COPD with possible exacerbation patient will be started on DuoNeb nebulizations. -atrial fibrillation probably paroxysmal presently rate controlled continue with Eliquis -Coronary disease with history of CABG in the past -Hypertension CODE STATUS: Unknown at this time discussed with the who will discuss with the family to make the decision
[2020-06-21] MEDS ORDERED: FUROSEMIDE 10 MG/ML 4 ML VIAL IV SCH (13:45)
[2020-06-21] MEDS ORDERED: ALBUTEROL HFA INHALER INHALATION SCH (14:00)
[2020-06-21] MEDS ORDERED: NOREPINEPHRIN 4 MG-0.9% NS PMX 4 MG/250 ML ML IV ONE (15:16)
[2020-06-21] MEDS ORDERED: NOREPINEPHRINE 4 MG in SODIUM CHLORIDE 0.9% 250 ML IV SCH (15:30)
[2020-06-21] MEDS ORDERED: IPRATROPIUM-ALBUTEROL 3 ML NEB INHALATION SCH (16:00)
[2020-06-21] MEDS ORDERED: MORPHINE SULFATE 2 MG/ML SYRINGE IV PRN (17:09)
[2020-06-21] MEDS ORDERED: SCOPOLAMINE 1.5MG/72HR PATCH TRANSDERM SCH (17:15)
[2020-06-21] MEDS: MORPHINE SULFATE 4 MG/ML SYRINGE IV PRN ×2 (17:26→23:11)
[2020-06-21] MEDS: LORazepam 2 MG/ML INJ IV PRN ×2 (17:27→23:17)
--- NOTE | 2020-06-21 17:28 | P.CNPUL ---
History of Present Illness Consult date: 06/21/20 Requesting physician: Milka Vee Reason for consult: pneumonia Chief complaint: Weakness History of present illness: This is an 84-year-old white male with history of multiple medical problems including asbestos associated lung disease/asbestosis, coronary artery disease, hypertension, chronic atrial fibrillation, degenerative joint disease, restrictive lung disease secondary to asbestosis, patient has chronic hypoxic respiratory failure maintained on oxygen at 4 L/m via nasal cannula. Patient was brought into the ER today for weakness. Patient reportedly fell out of his chair, had no specific clear injuries, chest x-ray on admission showed evidence of interstitial infiltrates, possible edema, there was also extensive interstitial fibrosis was calcified pleural plaques bilaterally left more so than right. Patient had negative PCR for covid 19, computed tomography scan of the cervical spine and brain was basically negative. Patient was admitted, and this consult was initiated. However shortly after he arrived to the floor, patient had worsening of his pulmonary status, the a team responded to the patient, and I was notified about him having severe respiratory distress. Recommended immediate intubation, patient was intubated and transferred to the ICU. I saw the patient in the ICU, family was at bedside, including his and his daughter. And they both clearly requested comfort care measures on the patient. Apparently the patient had previously expressed wishes, he would never want to be on any life support. Discussed his condition with the and soledad mojica and recommended that we proceed with comfort care measures. Chest x-ray and labs were all reviewed. And discussed the findings with the and daughter. Review of Systems ROS unobtainable: due to endotracheal tube Past Medical History Past Medical History: Atrial Fibrillation, COPD, Eye Disorder, Hyperlipidemia, Hypertension, Osteoarthritis (OA), Respiratory Disorder Additional Past Medical History / Comment(s): CURRENT: RECTAL BLEEDING, LOW HGB, "COLD". 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 Current dry rash buttocks-being tx by Dr. Caldwell. lower leg edema at times. bilateral glaucoma. arthritis-bilateral hips/knees. History of Any Multi-Drug Resistant Organisms: None Reported Past Surgical History: Cholecystectomy, Coronary Bypass/CABG, Heart Catheterization, Hernia Repair, Joint Replacement, Tonsillectomy Additional Past Surgical History / Comment(s): 4 vessl CABG about 14-15 yrs ago, total L hip arthroplasty, bilateral cataract removal with lens implants, colonoscopy, umbilical hernia repair. Past Anesthesia/Blood Transfusion Reactions: No Reported Reaction Past Psychological History: No Psychological Hx Reported Smoking Status: Unknown if ever smoked Past Alcohol Use History: Occasional Past Drug Use History: None Reported - Past Family History Father Family Medical History: Cancer, Coronary Artery Disease (CAD) Additional Family Medical History / Comment(s): Father had CABG and of stomach cancer. Mother History Unknown: Yes Additional Family Medical History / Comment(s): Mother had many unknown medical problems. She lived to be in her 90s. Medications and Allergies Home Medications Medication Instructions Recorded Confirmed Type Apixaban [Eliquis] 2.5 mg PO BID 08/29/17 06/21/20 History Atorvastatin [Lipitor] 10 mg PO HS 08/29/17 06/21/20 History Bimatoprost [Lumigan .01% Ophth 1 drop BOTH EYES HS 08/29/17 06/21/20 History Soln] Esomeprazole Magnesium [NexIUM] 20 mg PO HS 08/29/17 06/21/20 History Furosemide [Lasix] 20 mg PO BID 08/29/17 06/21/20 History Olmesartan [Benicar] 20 mg PO QAM 08/29/17 06/21/20 History Potassium Chloride ER [K-Dur 20] 20 meq PO BID 08/29/17 06/21/20 History allopurinoL [Zyloprim] 100 mg PO QAM 08/29/17 06/21/20 History metOLazone [Zaroxolyn] 2.5 mg PO MOWEFR PRN 08/29/17 06/21/20 History oxyCODONE-APAP 5-325MG [Percocet 1 tab PO Q6HR PRN 08/29/17 06/21/20 History 5-325 mg] traZODone HCL 50 - 150 mg PO HS PRN 08/29/17 06/21/20 History Celecoxib [CeleBREX] 100 mg PO BID 06/21/20 06/21/20 History Docusate [Colace] 200 mg PO DAILY 06/21/20 06/21/20 History LORazepam [Ativan] 1 mg PO BID 06/21/20 06/21/20 History Melatonin 5 mg PO HS PRN 06/21/20 06/21/20 History SILVER sulfADIAZINE Cream 1 applic TOPICAL DIRECTED 06/21/20 06/21/20 History [Silvadene 1% Cream] Tamsulosin HCl [Flomax] 0.8 mg PO HS 06/21/20 06/21/20 History Temazepam [Restoril] 7.5 mg PO HS PRN 06/21/20 06/21/20 History acetaZOLAMIDE [Diamox] 250 mg PO BID 06/21/20 06/21/20 History metOLazone [Zaroxolyn] 5 mg PO DIRECTED PRN 06/21/20 06/21/20 History Allergies Allergy/AdvReac Type Severity Reaction Status Date / Time No Known Allergies Allergy Verified 06/13/18 07:47 Physical Exam Vitals: Vital Signs Temp Pulse Pulse Resp BP BP Pulse Ox 06/21/20 16:00 56 L 24 95/51 97 06/21/20 15:35 63 24 74/46 97 06/21/20 15:15 59 L 24 57/40 97 06/21/20 15:00 68 24 69/42 97 06/21/20 14:55 72 24 71/48 96 06/21/20 13:30 78 24 171/62 93 L 06/21/20 12:30 100.8 F H 81 24 154/61 98 06/21/20 11:59 84 06/21/20 11:48 82 06/21/20 11:40 28 H 06/21/20 11:32 103.7 F H 80 26 H 170/89 94 L Intake and Output 06/21/20 06/21/20 06/21/20 06:59 14:59 22:59 Other: Voiding Method Indwelling Catheter Weight 136.078 kg Patient was not examined mostly because family requested just comfort care measures and no further treatment would rather see the patient go in [facility]. Results - Laboratory Findings CBC and BMP: 06/21/20 11:26 06/21/20 11:26 PT/INR, D-dimer PT 12.4 sec (9.0-12.0) H 06/21/20 11:26 INR 1.2 (<1.2) H 06/21/20 11:26 Abnormal lab findings: Abnormal Labs 06/21/20 06/21/20 06/21/20 11:26 11:26 11:26 WBC 12.7 H RBC 3.84 L Hgb 11.2 L Hct 34.2 L Plt Count 105 L Neutrophils # 11.7 H Lymphocytes # 0.3 L PT 12.4 H INR 1.2 H APTT 18.8 L BUN 34 H Glucose 171 H Plasma Lactic Acid Ted C-Reactive Protein 47.1 H Urine Protein Urine Blood Ur Leukocyte Esterase Urine RBC Urine WBC Urine WBC Clumps Urine Bacteria Urine Mucus 06/21/20 06/21/20 11:26 11:26 WBC RBC Hgb Hct Plt Count Neutrophils # Lymphocytes # PT INR APTT BUN Glucose Plasma Lactic Acid Ted 2.5 H* C-Reactive Protein Urine Protein 1+ H Urine Blood Moderate H Ur Leukocyte Esterase Large H Urine RBC >182 H Urine WBC 130 H Urine WBC Clumps Few H Urine Bacteria Moderate H Urine Mucus Occasional H - Diagnostic Findings Chest x-ray: image reviewed (As noted in HPI.) Assessment and Plan Assessment: Impression: Acute on chronic hypoxic respiratory failure, requiring intubation and mechanical ventilation. Bilateral, community-acquired pneumonia History of asbestosis and restrictive lung disease. Doubt congestive heart failure. Covid 19 pneumonitis is not entirely ruled out but felt to be less likely. Recommendation: Considering the family's request to proceed with comfort care measures No further treatment is necessary, We will proceed with comfort care measures as per family's wishes at bedside. Time with Patient: Greater than 30
[2020-06-21] MEDS: ATROPINE OPHTH SOLN 1% 5ML BTL SUBLINGUAL PRN ×2 (17:30→23:28)
[2020-06-21 17:52] LABS: Ferritin 120.5 ng/mL (22.0-322.0)
[2020-06-21 18:30] VITALS: BP 138/75
[2020-06-21] MEDS ORDERED: ATORVASTATIN 10 MG TAB PO SCH (21:00)
[2020-06-21] MEDS ORDERED: TAMSULOSIN 0.4 MG CAP.ER.24H PO SCH (21:00)
[2020-06-21] MEDS ORDERED: LATANOPROST 0.005% OPHTH DROPS 2.5 ML BTL BOTH EYES SCH (21:00)
[2020-06-21] MEDS ORDERED: APIXABAN 2.5 MG TABLET PO SCH (21:00)
[2020-06-21] MEDS ORDERED: PANTOPRAZOLE 40 MG TABLET PO SCH (21:00)
[2020-06-22] MEDS ORDERED: PIPERACILLIN-TAZOBACTAM 3.375 GM in SODIUM CHLORIDE 0.9% 100 ML IVPB SCH ×2
[2020-06-22] MEDS: MORPHINE SULFATE 4 MG/ML SYRINGE IV PRN (00:32)
[2020-06-22 00:46] VITALS: PULSE 59
[2020-06-22] MEDS: MORPHINE SULFATE (100 MG/2 ML) 100 MG in SODIUM CHLORIDE 0.9% 100 ML IV SCH ×2 (01:07→05:54)
[2020-06-22] MEDS: LORazepam 2 MG/ML INJ IV PRN (05:25)
[2020-06-22] MEDS ORDERED: DOCUSATE 100 MG CAP PO SCH (09:00)
[2020-06-22] MEDS ORDERED: LOSARTAN 50 MG TAB PO SCH (09:00)
--- NOTE | 2020-06-22 09:54 | P.DS ---
Providers Date of admission: 06/21/20 12:40 Attending physician: Milka Vee Consults: 06/21/20 12:41 Consult Physician Urgent Consulting Provider: Alvaro Giang Reason/Comments: pneumonia, sepsis Do you want consulting provider notified?: Yes [facility] Course: 83-year-old pleasant woman was admitted secondary to severe sepsis from a bilateral pneumonia. Patient has pulmonary fibrosis and patient was in acute hypoxic respiratory failure pulmonology later evaluated the patient as patient went into severe hypoxemia. At that time family wanted him to be intubated patient was subsequently intubated few minutes after intubation family wanted him to be comfort care patient the was terminally extubated was made Comfort Care wasn't comfort measures only discontinued all antibiotics. Patient earlier today morning at 8:23 AM. Patient is negative for Covid 19 For rest of the hospitalization course and other medical problems addressed dur ing [facility] physician please refer to H&P from yesterday from me. Patient Condition at Discharge: Serious Plan - Discharge Summary New Discharge Prescriptions: No Action oxyCODONE-APAP 5-325MG [Percocet 5-325 mg] 1 tab PO Q6HR PRN PRN Reason: Pain Furosemide [Lasix] 20 mg PO BID Potassium Chloride ER [K-Dur 20] 20 meq PO BID metOLazone [Zaroxolyn] 2.5 mg PO MOWEFR PRN PRN Reason: leg swelling Olmesartan [Benicar] 20 mg PO QAM Atorvastatin [Lipitor] 10 mg PO HS allopurinoL [Zyloprim] 100 mg PO QAM Esomeprazole Magnesium [NexIUM] 20 mg PO HS Apixaban [Eliquis] 2.5 mg PO BID Bimatoprost [Lumigan .01% Ophth Soln] 1 drop BOTH EYES HS traZODone HCL 50 - 150 mg PO HS PRN PRN Reason: sleep acetaZOLAMIDE [Diamox] 250 mg PO BID Celecoxib [CeleBREX] 100 mg PO BID Docusate [Colace] 200 mg PO DAILY LORazepam [Ativan] 1 mg PO BID Melatonin 5 mg PO HS PRN PRN Reason: sleep metOLazone [Zaroxolyn] 5 mg PO DIRECTED PRN PRN Reason: swelling Tamsulosin HCl [Flomax] 0.8 mg PO HS Temazepam [Restoril] 7.5 mg PO HS PRN PRN Reason: Insomnia SILVER sulfADIAZINE Cream [Silvadene 1% Cream] 1 applic TOPICAL DIRECTED Discharge Medication List Apixaban [Eliquis] 2.5 mg PO BID 08/29/17 [History] Atorvastatin [Lipitor] 10 mg PO HS 08/29/17 [History] Bimatoprost [Lumigan .01% Ophth Soln] 1 drop BOTH EYES HS 08/29/17 [History] Esomeprazole Magnesium [NexIUM] 20 mg PO HS 08/29/17 [History] Furosemide [Lasix] 20 mg PO BID 08/29/17 [History] Olmesartan [Benicar] 20 mg PO QAM 08/29/17 [History] Potassium Chloride ER [K-Dur 20] 20 meq PO BID 08/29/17 [History] allopurinoL [Zyloprim] 100 mg PO QAM 08/29/17 [History] metOLazone [Zaroxolyn] 2.5 mg PO MOWEFR PRN 08/29/17 [History] oxyCODONE-APAP 5-325MG [Percocet 5-325 mg] 1 tab PO Q6HR PRN 08/29/17 [History] traZODone HCL 50 - 150 mg PO HS PRN 08/29/17 [History] Celecoxib [CeleBREX] 100 mg PO BID 06/21/20 [History] Docusate [Colace] 200 mg PO DAILY 06/21/20 [History] LORazepam [Ativan] 1 mg PO BID 06/21/20 [History] Melatonin 5 mg PO HS PRN 06/21/20 [History] SILVER sulfADIAZINE Cream [Silvadene 1% Cream] 1 applic TOPICAL DIRECTED 06/21/20 [History] Tamsulosin HCl [Flomax] 0.8 mg PO HS 06/21/20 [History] Temazepam [Restoril] 7.5 mg PO HS PRN 06/21/20 [History] acetaZOLAMIDE [Diamox] 250 mg PO BID 06/21/20 [History] metOLazone [Zaroxolyn] 5 mg PO DIRECTED PRN 06/21/20 [History] Follow up Appointment(s)/Referral(s): Jesus Alberto Graves DO [Primary Care Provider] - 1-2 days - Preliminary Cause of Preliminary Cause of : Come in today quite pneumonia most probably pneumococcal pneumonia
[2020-06-22] MEDS ORDERED: AZITHROMYCIN 500 MG in SODIUM CHLORIDE 0.9% 250 ML IVPB SCH (13:00)
--- NOTE | 2020-06-30 08:17 | CDI ---
Documentation Clarification Form Date: 06/30/2020 07:59:42 AM From: Edith Resendez CCS, CCDS Admit Date: 06/21/2020 12:40:00 PM Patient Name: Ronnie Sparks Visit Number: [id number] Discharge Date: 06/22/2020 12:01:00 PM ATTENTION: The Clinical Documentation Specialists (CDI) and [facility] Coding Staff appreciate your assistance in clarifying documentation. Please respond to the clarification below the line at the bottom and electronically sign. The CDI & [facility] Coding staff will review the response and follow-up if needed. Please note: Queries are made part of the Legal Health Record. If you have any questions, please contact the author of this message via ITS. Dr. Milka Vee: Per the 06/21 History & Physical: "Severe sepsis: Most probably secondary to pneumonia bilateral, patient is on Zosyn which will be continued. Sputum cultures and blood cultures will be obtained, the patient does have abnormal urine as well although patient denied any symptoms of UTI, probably symptomatic bacteuria. Possible sources pneumonia." History/Risk Factors: Atrial Fibrillation, COPD, Hyperlipidemia, Hypertension, Osteoarthritis bilateral hips & knees, Asbestos exposure, Home O2 3-4Lnc. Surgical History: Cholecystectomy, CABG, Lt SHEREE, Bilateral cataracts extracted w/lens implants, Hernia Repair & Heart Catheterization. Clinical Indicators: 84 yo male, presented to the ED on 06/21 from home with altered mental status, weakness, fell out of a chair? Unclear if injured, presented w/C Collar. Has cough & SOB. In no distress, has rales, tachycardia w/irregular rhythm, Oriented to person only, confused. Concern for sepsis. Vital Signs 06/21: T 103.7^, P 80 - 84, R 26 - 28 (SOB, Shallow, Tachypnea), BP 170/89, PO 944 15L Venti Mask LAB 06/21: WBC 12.7^, Hgb 11.2*, Pl Ct 105*, Neut 11.8^, Lymph 0.3*, PT 12.4^, INR 1.2^, APTT 18.8*, BUN 45^, Glucose 171^, Lactic Acid 2.5^^ - 0.9; CRP 47.1, Procalcitonin 0.41^ UA: cloudy, 1+ protein, Moderate Blood, Large Esterase, RBC >182^, WBC 130^. Urine Culture: Final: Klebsiella pneumonia Blood Culture: Final: Negative COVID-10: Negative x2 Treatment 06/21: IV Acetaminophen, INH Duoneb (Albuterol/Ipratropium, IV Azithromycin 500 mg, IV Zosyn, IV Lasix, Intubated on vent, shortly after intubation, made Comfort Care by family & 06/22. Please clarify the following diagnosis and whether Present on Admission with cause if known: UTI Ruled Out UTI Ruled In: o With Sepsis o Specify organism, if known Other, please specify Unable to determine Present on Admission: o Yes o No (Last Revision: April 2017) My documentation is pretty clear please refer to my documentation MTDD
== END 2020-06-22 12:01 | disposition expired | DRG 871 ==
LOC: EC 11:15 → 3SCARD 12:40 → 2SICU 14:36
PROVIDERS: ADMIT Internal Medicine; ATTEND Internal Medicine
PROC: 0BH17EZ Insertion of Endotracheal Airway into Trachea, Via Natural or Artificial Opening (ICD-10-PCS; principal; 2020-06-21)
PROC: 5A1935Z Respiratory Ventilation, Less than 24 Consecutive Hours (ICD-10-PCS; principal; 2020-06-21)
DX: A40.3 Sepsis due to Streptococcus pneumoniae (principal); J96.21 Acute and chronic respiratory failure with hypoxia; J13 Pneumonia due to Streptococcus pneumoniae; R65.20 Severe sepsis without septic shock; J44.0 Chronic obstructive pulmonary disease with (acute) lower respiratory infection; E87.2 Acidosis; J44.1 Chronic obstructive pulmonary disease with (acute) exacerbation; Z51.5 Encounter for palliative care; Z20.828 Contact with and (suspected) exposure to other viral communicable diseases; E78.5 Hyperlipidemia, unspecified; M16.0 Bilateral primary osteoarthritis of hip; M17.0 Bilateral primary osteoarthritis of knee; I48.0 Paroxysmal atrial fibrillation; R82.71 Bacteriuria; I11.0 Hypertensive heart disease with heart failure; I50.9 Heart failure, unspecified; Z77.090 Contact with and (suspected) exposure to asbestos; I25.10 Atherosclerotic heart disease of native coronary artery without angina pectoris; Z96.1 Presence of intraocular lens; Z96.642 Presence of left artificial hip joint; Z99.81 Dependence on supplemental oxygen; Z79.899 Other long term (current) drug therapy; Z79.1 Long term (current) use of non-steroidal anti-inflammatories (NSAID); Z80.0 Family history of malignant neoplasm of digestive organs; Z79.01 Long term (current) use of anticoagulants; Z95.1 Presence of aortocoronary bypass graft; Z82.49 Family history of ischemic heart disease and other diseases of the circulatory system; Z80.9 Family history of malignant neoplasm, unspecified; Z90.49 Acquired absence of other specified parts of digestive tract; Z90.89 Acquired absence of other organs; Z98.890 Other specified postprocedural states; Z98.42 Cataract extraction status, left eye; Z98.41 Cataract extraction status, right eye
CPT/HCPCS: 36415; 70450; 71045; 72125; 80053; 81001; 82728; 83605; 83615; 83735; 83880; 84145; 85025; 85610; 85730; 86140; 87040; 87077; 87086; 87186; 87635; 93005; 94640; 96365; 96367; 96375; 99291